=== PATIENT | female | born 1970 | race Caucasian/White ===

== ENCOUNTER 2023-01-11 20:22 | Inpatient (IN) | payer MEDICAID ==
[~2023-01-11] VITALS: Ht 167.6 cm; Wt 75.7 kg
[2023-01-11 20:37] VITALS: BP_SYST 140
[2023-01-11 21:25] LABS: BASOPHILS % (AUTO) 0.6 % (0.0-2.0); EOSINOPHILS # (AUTO) 0.2 K/uL (0.0-0.4); EOSINOPHILS % (AUTO) 2.7 % (0.0-4.0); HEMATOCRIT 43.9 % (36-48); HEMOGLOBIN 14.9 g/dL (12.0-16.0); LYMPHOCYTES # (AUTO) 3.2 K/uL (1.0-5.5); LYMPHOCYTES % (AUTO) 43.9 % (20.5-51.5); MEAN CORPUSCULAR HEMOGLOBIN 32 pg (27-31); MEAN CORPUSCULAR HGB CONC 34 % (32-36); MEAN CORPUSCULAR VOLUME 95 fL (79.0-98.0); MONOCYTES # (AUTO) 0.7 K/uL (0.0-1.0); MONOCYTES % (AUTO) 9.3 % (1.7-9.3); NEUTROPHILS # (AUTO) 3.2 K/uL (1.8-7.7); NEUTROPHILS % (AUTO) 43.5 % (40.0-70.0); PLATELET COUNT (AUTO) 218 K/uL (130-430); RED BLOOD CELL COUNT(AUTO) 4.64 MIL/uL (4.2-6.2); WHITE BLOOD COUNT (AUTO) 7.3 K/uL (4.8-10.8)
[2023-01-11 21:51] LABS: ANION GAP 12 (5-15); CHLORIDE 102 mmol/L (98-107); CREATININE 1.12 mg/dL (0.55-1.30); GLUCOSE 96 mg/dL (70-99); UREA NITROGEN, BLOOD 13 mg/dL (8-21)
[2023-01-11 21:58] LABS: ALANINE AMINOTRANSFERASE 52 U/L (12-78); ALBUMIN 3.8 g/dL (3.4-4.8); ASPARTATE AMINOTRANSFERASE 53 U/L (10-37); TOTAL BILIRUBIN 0.3 mg/dL (0.0-1.0)
[2023-01-11 22:04] LABS: GFR AFRICAN AMERICAN 66 mL/min (>90)
[2023-01-11 22:05] LABS: ACETAMINOPHEN < 1 ug/mL (1-30)
[2023-01-11 22:07] LABS: ALCOHOL, BLOOD 435 mg/dL (<10)
[2023-01-11] MEDS ORDERED: HALOPERIDOL LACTATE 5 MG/ML VIAL IM ONE (23:00)
[2023-01-11] MEDS ORDERED: DIPHENHYDRAMINE INJ 50 MG/ML VIAL IM ONE (23:00)
[2023-01-11] MEDS ORDERED: NACL 0.9% 1,000 ML IV ONE (23:00)
[2023-01-11] MEDS ORDERED: THIAMINE HCL 100 MG TABLET PO ONE (23:00)
[2023-01-11 23:23] LABS: BILIRUBIN,URINE NEGATIVE (NEGATIVE); COLOR,URINE YELLOW (YELLOW); GLUCOSE,URINE NEGATIVE (NEGATIVE); KETONES,URINE NEGATIVE (NEGATIVE); LEUKOCYTE ESTERASE ,URINE TRACE (NEGATIVE); NITRITE, URINE POSITIVE (NEGATIVE); PH,URINE 5.5 (5.0-8.0); PROTEIN URINE NEGATIVE (NEGATIVE); UROBILINOGEN,URINE 0.2 (0.2-1.0)
[2023-01-11 23:33] LABS: BLOOD, URINE TRACE (NEGATIVE); CLARITY/URINE SLIGHTLY CLOUDY (CLEAR)
[2023-01-11 23:55] LABS: BARBITURATE, URINE NEGATIVE (NEG <=200); BENZODIAZEPINE, URINE NEGATIVE (NEG <=150); CANNABINOID, URINE POSITIVE (NEG <=50); COCAINE, URINE NEGATIVE (NEG <=150); METHAMPHETAMINES SCREEN,URINE NEGATIVE (NEG <=500); OPIATE, URINE NEGATIVE (NEG <=100); PHENCYCLIDINE SCREEN,URINE NEGATIVE (NEG <=25); UR TRICYCLIC ANTIDEPRESSANTS NEGATIVE (NEG <=300); URINE AMPHETAMINE NEGATIVE (NEG <=500); URINE METHADONE NEGATIVE (NEG <=200); URINE OXYCODONE SCREEN NEGATIVE (NEG <=100); URINE PROPOXYPHENE SCREEN NEGATIVE (NEG <=300)
[2023-01-12 00:12] LABS: BACTERIA,URINE MANY /HPF (None Seen); RBC,URINE 0-3 /HPF (0-3)
[2023-01-12] MEDS ORDERED: cefTRIAXone 1 GM in D5W 50 ML IV ONE (00:30)
[2023-01-12] MEDS ORDERED: cefTRIAXone 1 GM IVPB PREMIX 50 ML IV ONE (00:52)
[2023-01-12] MEDS ORDERED: POTASSIUM CHLORIDE 20 MEQ TAB.PRT.SR PO PRN (02:30)
[2023-01-12] MEDS ORDERED: ACETAMINOPHEN 325 MG TABLET PO PRN (02:30)
[2023-01-12] MEDS ORDERED: ONDANSETRON HCL 4 MG/2 ML VIAL IVP PRN (02:30)
[2023-01-12] MEDS ORDERED: MORPHINE 2 MG/ML INJ. SYRINGE IVP PRN ×2 (02:30)
[2023-01-12] MEDS ORDERED: MUPIROCIN 2% TOPICAL OINTMENT 22 GM NS PRN (02:30)
[2023-01-12] MEDS ORDERED: MAGNESIUM SULFATE 50 ML IV PRN (02:30)
[2023-01-12] MEDS ORDERED: DOCUSATE SODIUM 100 MG CAPSULE PO PRN (02:30)
[2023-01-12] MEDS: THIAMINE HCL 100 MG TABLET PO SCH (08:08)
[2023-01-12] MEDS: FOLIC ACID 1 MG TABLET PO SCH (09:02)
[2023-01-12] MEDS: LORazepam 2 MG/ML VIAL IVP PRN ×3 (09:36→22:54)
[2023-01-13] MEDS ORDERED: cefTRIAXone 1 GM IVPB PREMIX 50 ML IV SCH (01:00)
[2023-01-13] MEDS: THIAMINE HCL 100 MG TABLET PO SCH (08:16)
[2023-01-13] MEDS: FOLIC ACID 1 MG TABLET PO SCH (08:16)
[2023-01-13] MEDS: LORazepam 2 MG/ML VIAL IVP PRN (08:19)
[2023-01-13 08:35] VITALS: BP_SYST 131
[2023-01-13 08:54] LABS: CALCIUM 8.5 mg/dL (8.4-11.0); CREATININE 0.77 mg/dL (0.55-1.30)
[2023-01-13 08:57] LABS: BASOPHILS % (AUTO) 0.7 % (0.0-2.0); EOSINOPHILS # (AUTO) 0.1 K/uL (0.0-0.4); EOSINOPHILS % (AUTO) 2.9 % (0.0-4.0); HEMOGLOBIN 13.9 g/dL (12.0-16.0); LYMPHOCYTES # (AUTO) 1.4 K/uL (1.0-5.5); LYMPHOCYTES % (AUTO) 27.7 % (20.5-51.5); MEAN CORPUSCULAR HEMOGLOBIN 32 pg (27-31); MEAN CORPUSCULAR HGB CONC 34 % (32-36); MEAN CORPUSCULAR VOLUME 94 fL (79.0-98.0); MONOCYTES # (AUTO) 0.4 K/uL (0.0-1.0); MONOCYTES % (AUTO) 8.1 % (1.7-9.3); NEUTROPHILS % (AUTO) 60.6 % (40.0-70.0); PLATELET COUNT (AUTO) 136 K/uL (130-430); RED BLOOD CELL COUNT(AUTO) 4.38 MIL/uL (4.2-6.2); RED CELL DISTRIBUTION WIDTH 12.6 % (9.0-15.0)
[2023-01-13] MEDS ORDERED: FOLI-43 PO (09:27)
[2023-01-13] MEDS ORDERED: NITR-85 PO ×2 (09:28)
[2023-01-13] MEDS ORDERED: LORA-258 PO (09:29)
[2023-01-13] MEDS ORDERED: LEVO-62 PO (09:48)
[2023-01-13 12:40] VITALS: BP_SYST 131
== END 2023-01-13 13:10 | disposition home or self-care (01) | DRG 463 ==
LOC: EDBD 20:22 → SED 20:22 → STU 01-12 02:15
PROVIDERS: ADMIT Family Medicine; ATTEND Family Medicine
DX: N39.0 Urinary tract infection, site not specified (principal); E83.51 Hypocalcemia; R45.851 Suicidal ideations; F10.139 Alcohol abuse with withdrawal, unspecified; F10.129 Alcohol abuse with intoxication, unspecified; F41.9 Anxiety disorder, unspecified; F32.A Depression, unspecified; R74.01 Elevation of levels of liver transaminase levels; Y90.9 Presence of alcohol in blood, level not specified; Z20.822 Contact with and (suspected) exposure to COVID-19
CPT/HCPCS: 36415; 71045; 80048; 80053; 80307; 81000; 83735; 84484; 85025; 87040; 87086; 93005; 96361; 96365; 96367; 96372; 99285; G0378; G0480; G0481; G0482; J0696; J1200; J1630; J2060